=== PATIENT | male | born 1955 | race Caucasian/White ===

== ENCOUNTER 2017-05-13 17:02 | Emergency (ER) | payer OTHER ==
[~2017-05-13] VITALS: Ht 188 cm; Wt 108.9 kg
[2017-05-13] MEDS ORDERED: IV NORMAL SALINE 1,000ML 500 ML IV SCH (18:01)
--- NOTE | 2017-05-13 18:14 | PHYS DOC ---
Text Text See Dr. Royal note for details. CT findings show no hydronephrosis. There is passing stranding around bilateral kidneys. There is a 5.4 cm renal cyst in left kidney. Mild distention of small bowel loops. 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 Impression: 1. Renal colic 2. Pyelonephritis 3. Hyponatremia 4. Leukocytosis 5. Urinary tract infection 6. 5.4 cm renal cyst left kidney 7. Mixed density bony lesions and pelvis. Discussed findings with patient. He states he's had bony pelvis lesions for some time and that had been previously worked up. Patient has elected to be discharged home on antibiotics and he will follow-up with urology, nephrology and primary. Warned patient pyelonephrosis is a serious presentation and this must be followed closely. Patient will receive Zofran for nausea. Add Levaquin 500 mg a day. Zofran 8 mg as needed up to 4 times a day for nausea. Must have follow-up UA. Must follow-up primary care. Pt. patient exhibits UCAR capacity and seems to be aware of risks of discharge. Warned pt. if no improved he must be admitted for IV antibiotics. Pt. to get followup urology and nephrology. Pt. to follow up at [facility] as soon as possible for referrals. (EDEL ORO MD) General Chief Complaint: URINARY RETENTION Stated Complaint: FEVER, URINARY ISSUES Time Seen by MD: 17:50 Source: patient Exam Limitations: no limitations Problems: (FRANCES ROYAL DO) Time Seen by MD: 19:28 Problems: (EDEL ORO MD) History of Present Illness Initial Comments Patient is a 61-year-old male who comes to the ED complaining of urinary frequency/hesitancy/fever. Patient has history of kidney stones, he states his recurrences typically start like his current symptoms. He says yesterday morning at 11:00 while at work he developed urinary frequency and hesitancy having to go every 20 minutes with small quantities of urine each time. He denies dysuria hematuria odor, he's had no flank or abdominal discomfort. Today he's been achy and fatigued with accompanying chills and sweats this afternoon says his temperature was 101 F at home. He took no medications and on arrival to the emergency department was afebrile. He's had some mild nausea but no vomiting, he had initially scheduled an appointment with his primary care doctor for tomorrow but symptoms worsened to the point today where he didn't think he make it until tomorrow. He has history of kidney stones he's had lithotripsy in the past he also has history of BPH which he says he's had nearly all of his life. He denies chest pain or trouble breathing, his headache is described as global and throbbing, mild while supine and worse when he is up and ambulatory. He denies any vision changes or focal neurologic deficits no unexplained weight loss. He denies any immunocompromise status, he does admit to drinking beer daily up to a sixpack daily on the weekends. Timing/Duration: 24 hours Severity: moderate Modifying Factors: worse with movement, improves with rest Associated Symptoms: diaphoresis, fever/chills, headaches, malaise, nausea/ vomiting, weakness, other (FRANCES ROYAL DO) Allergies: Coded Allergies: No Known Drug Allergies (Unverified , 05/13/17) Past Medical History Medical History: other (hypertension, BPH, hypothyroidism, kidney stones, osteoarthritis) Surgical History: other (left shoulder replacement, lumbar surgeries 2, thyroid nodule removal, lithotripsy, appendectomy) (FRANCES ROYAL DO) Social History Smoker: non-smoker Alcohol: heavy Drugs: none (FRANCES ROYAL DO) Review of Systems Constitutional: see HPI Respiratory: denies cough, denies shortness of breath, denies wheezing Cardiovascular: denies chest pain, denies palpitations, denies syncope Gastrointestinal: denies abdominal pain, denies diarrhea, nausea, denies vomiting Genitourinary: see HPI Musculoskeletal: see HPI, denies back pain, denies neck pain Psychiatric/Neurological: headache, denies numbness, denies paresthesia, denies weakness Hematologic/Lymphatic: denies blood clots, denies easy bleeding, denies easy bruising (FRANCES ROYAL DO) Physical Exam General Appearance: WD/WN, no apparent distress Ear, Nose, Throat: hearing grossly normal, normal ENT inspection, normal pharynx (mucous membranes mildly dry) Neck: non-tender, supple Respiratory: normal breath sounds, no respiratory distress Cardiovascular: normal peripheral pulses, regular rate, rhythm Gastrointestinal: normal bowel sounds, non tender, soft (negative Interiano, no palpable masses no suprapubic tenderness or distention) Back: no CVA tenderness, no vertebral tenderness Extremities: non-tender, normal inspection 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 However he has no suprapubic or flank tenderness, and relays that his symptoms are nearly identical to his recurrences of kidney stones. Due to this will check CT to rule out kidney stones as well as basic labs and urine. We'll gently hydrate with 500 mL normal saline IV bolus, Zofran and Toradol for symptoms. Fentanyl 25 g IV is ordered for when necessary discomfort should that develop. 1812: Patient signed out to Dr. Oro shift change. See his documentation for results and further patient disposition. (FRANCES ROYAL DO) FRANCES ROYAL DO May 13, 2017 18:14 EDEL ORO MD May 14, 2017 04:04
[2017-05-13] MEDS ORDERED: fentaNYL PF 100 MCG/2 ML VIAL IV PRN (18:15)
[2017-05-13] MEDS ORDERED: IV NORMAL SALINE 50ML 50 ML ONE (18:22)
[2017-05-13] MEDS ORDERED: cefTRIAXone SODIUM 1 GM VIAL IV ONE (18:23)
[2017-05-13] MEDS ORDERED: ONDANSETRON PF 4 MG/2 ML VIAL. IV ONE (18:30)
[2017-05-13] MEDS ORDERED: KETOROLAC 30 MG/ML VIAL. IV ONE (18:30)
[2017-05-13] MEDS ORDERED: IV NORMAL SALINE 50ML 50 ML IV ONE (18:30)
[2017-05-13 18:43] LABS: CLARITY,URINE HAZY; COLOR,URINE YELLOW
[2017-05-13 18:44] LABS: BASO % 0 % (0-3); EOS % 0 % (0-3); HEMATOCRIT 40.9 % (39.0-53.0); HEMOGLOBIN 14.3 g/dL (13.0-17.5); LYMPH # 1.6 x10^3/uL (1.0-4.8); LYMPH % 11 % (24-48); MEAN CORPUSCULAR HEMOGLOBIN 32 pg (25-35); MEAN CORPUSCULAR HGB CONC 35 g/dL (31-37); MEAN CORPUSCULAR VOLUME 92 fL (79-100); MONO # 1.2 x10^3/uL (0.0-1.1); MONO % 9 % (0-9); NEUT # 11.5 x10^3uL (1.8-7.7); NEUT % 80 % (31-73); PLATELET COUNT 230 x10^3/uL (140-400); RED BLOOD COUNT 4.44 x10^6/uL (4.30-5.70); RED CELL DISTRIBUTION WIDTH 13.5 % (11.5-14.5); WHITE BLOOD COUNT 14.4 x10^3/uL (4.0-11.0)
[2017-05-13 18:44] LABS: BACTERIA,URINE MANY /HPF (0-FEW); BILIRUBIN,URINE NEG (NEG); GLUCOSE,URINE NEG (NEG); NITRITE,URINE NEG (NEG); RBC,URINE OCC /HPF (0-2); SQUAMOUS EPITHELIAL CELL,UR OCC /LPF; UROBILINOGEN,URINE 0.2 mg/dL (0.2 mg/dL); WBC,URINE 20-40 /HPF (0-4)
[2017-05-13 18:45] LABS: CALCIUM 9.2 mg/dL (8.5-10.1); CREATININE 1.2 mg/dL (0.7-1.3); GFR 61.6; POTASSIUM 4.2 mmol/L (3.5-5.1)
--- NOTE | 2017-05-13 19:20 | RAD ---
Examination: CT of the abdomen pelvis without contrast HISTORY: History of abdominal pain, urinary retention COMPARISON: None available TECHNIQUE: Axial CT images of the abdomen pelvis were performed without contrast. Coronal and sagittal reformats are performed Exposure: One or more of the following individualized dose reduction techniques were utilized for this examination: 1. Automated exposure control 2. Adjustment of the mA and/or kV according to patient size 3. Use of iterative reconstruction technique FINDINGS: The bibasilar lungs are clear. No evidence of free air identified in the abdomen. The evaluation of solid organs is limited due to lack of IV contrast. The evaluation of bowel is limited due to lack of oral contrast. There is diffuse decreased attenuation noted throughout the liver likely hepatic steatosis. The visualized spleen, adrenals grossly appears unremarkable. The gallbladder is mildly distended. The stomach is mildly distended. The visualized pancreas grossly appears unremarkable. Few fluid distended small bowel loops identified in the left mid abdomen and in the ileal bowel loops distally the appendix is not clearly identified. Feces and gas noted in the colon. Urinary bladder is mildly distended. 2 small punctate intrarenal collecting system calculi identified in the right kidney with largest measuring 2 mm. There 2 small punctate 1 mm intrarenal collecting system calculi identified in the left kidney. There is a large cystic structure identified in the left kidney measuring 5.4 cm could be a cyst or cystic lesion. No evidence of hydronephrosis. Minimal fat stranding identified on the bilateral kidneys. Mild aortic atherosclerosis. The prostate is mildly enlarged. Central prostatic calcifications identified. Mixed density bony lesion identified in the left iliac bone could be secondary to Paget's disease or fibrous dysplasia. Mild degenerative changes lumbar spine mild anterolisthesis of L4 on L5 with the L4 spondylolysis. IMPRESSION: 1. Punctate bilateral intrarenal collecting system calculi without hydronephrosis. There is minimal fat stranding identified around the bilateral kidneys, nonspecific could be chronic or due to pyelonephritis. Correlate with lab values. 2. 5.4 cm cyst or cystic lesion identified in the left kidney. 3. Hepatic steatosis. 4. Mild fluid distended small bowel loops, nonspecific. 5. Mixed density bony lesion identified in the left iliac bone could be secondary to Paget's disease or fibrous dysplasia. Follow-up nonemergent bone scan can be considered. Electronically signed by: Jose Antonio Fajardo MD (05/13/2017 7:16 PM) [facility]
[2017-05-13] MEDS ORDERED: HYDR-79 PO (19:41)
[2017-05-13] MEDS ORDERED: ONDA8TAB12 PO (19:41)
[2017-05-13] MEDS ORDERED: LEVO500T59 PO (19:41)
[2017-05-13] MEDS ORDERED: levoFLOXacin 500 MG TABLET PO ONE (19:45)
[2017-05-13 19:50] VITALS: BP 128/81
== END 2017-05-13 20:00 | disposition home or self-care (01) ==
LOC: ER 17:02
DX: N23 Unspecified renal colic (principal); N12 Tubulo-interstitial nephritis, not specified as acute or chronic; E87.1 Hypo-osmolality and hyponatremia; D72.829 Elevated white blood cell count, unspecified; N39.0 Urinary tract infection, site not specified; N28.1 Cyst of kidney, acquired; M85.88 Other specified disorders of bone density and structure, other site; M19.90 Unspecified osteoarthritis, unspecified site; I10 Essential (primary) hypertension; N40.0 Benign prostatic hyperplasia without lower urinary tract symptoms; F10.10 Alcohol abuse, uncomplicated; Z87.442 Personal history of urinary calculi
CPT/HCPCS: 36415; 74176; 80048; 81001; 85025; 87086; 87186; 96365; 96375; 99285; J0696; J1885; J2405; J3010; J7030

== ENCOUNTER 2017-05-18 12:14 | Emergency (ER) | payer OTHER ==
[~2017-05-18] VITALS: Ht 188 cm; Wt 108.9 kg
[~2017-05-18 12:14] MED LIST: HYDR-79 PO; LEVO500T59 PO; ONDA8TAB12 PO
[2017-05-18 14:07] LABS: BACTERIA,URINE 0 /HPF (0-FEW); BILIRUBIN,URINE NEG (NEG); CLARITY,URINE CLEAR; COLOR,URINE YELLOW; GLUCOSE,URINE NEG (NEG); NITRITE,URINE NEG (NEG); RBC,URINE 0 /HPF (0-2); UROBILINOGEN,URINE 0.2 mg/dL (0.2 mg/dL); WBC,URINE RARE /HPF (0-4)
[2017-05-18 14:30] VITALS: BP 130/69
[2017-05-18] MEDS ORDERED: LEVO500T59 PO (14:54)
--- NOTE | 2017-05-18 14:56 | PHYS DOC ---
General Chief Complaint: URINARY FREQUENCY Stated Complaint: URINARY FREQUENCY Time Seen by MD: 12:56 Source: patient, old records Exam Limitations: no limitations Problems: History of Present Illness Initial Comments Patient is a 61-year-old male who was seen here on May 13 diagnosed with pyelonephritis discharged with Levaquin. He states is advised to follow-up with his doctor. He says he was unable to get an appointment with his doctor earlier today so came here for evaluation. He denies any fevers chills sweats or myalgias, no urinary odor discoloration and no dysuria. Patient does urinary frequency remains unchanged. No flank pain, he says he ran out of Levaquin today stating he was only prescribed 5 tablets. He' s been taking medications as prescribed had no adverse effects from home and denies any other complaints. ED vitals are stable Timing/Duration: 1 week Severity: mild Modifying Factors: improves with medication, improves with other Associated Symptoms: other Allergies: Coded Allergies: No Known Drug Allergies (Unverified , 05/13/17) Past Medical History Medical History: arthritis, hypertension, other (hypothyroid) Surgical History: appendectomy, other Social History Smoker: cigarettes Alcohol: occasionally Drugs: none Review of Systems Constitutional: denies chills, denies fever Respiratory: denies cough, denies shortness of breath Cardiovascular: denies chest pain, denies palpitations Gastrointestinal: denies abdominal pain, denies diarrhea, denies nausea, denies vomiting Genitourinary: see HPI Musculoskeletal: denies back pain, denies joint swelling, denies neck pain Psychiatric/Neurological: denies headache, denies numbness, denies paresthesia Physical Exam General Appearance: WD/WN, no apparent distress Ear, Nose, Throat: hearing grossly normal, normal ENT inspection Neck: non-tender, supple Respiratory: normal breath sounds, no respiratory distress Cardiovascular: normal peripheral pulses, regular rate, rhythm Gastrointestinal: non tender, soft Back: no CVA tenderness, no vertebral tenderness Extremities: non-tender, normal inspection Neurologic/Psychiatric: alert, normal mood/affect, oriented x 3 Skin: normal color, warm/dry Orders, Labs, Meds Urinalysis with rare white blood cells otherwise unremarkable Will prescribe 5 more days of Levaquin patient only took 5 days for pyelonephritis Patient advised to discontinue tobacco abuse. His questions were answered expressed agreement and understanding with the treatment plan. Departure Time of Disposition: 14:55 Disposition: 01 HOME, SELF-CARE Diagnosis: pyelonephritis Condition: IMPROVED Patient Instructions: Pyelonephritis, Adult, [id number] Additional Instructions: Continue current care. Continue aggressive hydration with the rate and water. Prescription: Levaquin 500 mg quantity 5 (to complete a full 10 day course). Follow-up with your doctor in 5 days for recheck Return to ED with new or changing symptoms FRANCES ROYAL DO May 18, 2017 14:56
== END 2017-05-18 15:10 | disposition home or self-care (01) ==
LOC: ER 12:14
DX: N12 Tubulo-interstitial nephritis, not specified as acute or chronic (principal); I10 Essential (primary) hypertension; E03.9 Hypothyroidism, unspecified; M19.90 Unspecified osteoarthritis, unspecified site; F17.210 Nicotine dependence, cigarettes, uncomplicated
CPT/HCPCS: 81001; 99283